=== PATIENT | female | born 1990 | race Caucasian/White ===

== ENCOUNTER 2017-10-25 11:17 | Emergency (ER) | payer OTHER, BC ==
--- NOTE | 2017-10-25 12:19 | EDM.PDOC ---
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 She is staying at employee housing in [place]. She states that around 21:20 last evening, she went to the laundry room. When she opened the door, something flew directly after, running into the left side of her neck. She states that she institute tilted her head to the left and raised her left shoulder, trapping the animal for about 15 seconds, before she left to go. When it flew away, she could see that it was a bat. The patient states that at no time did she feel any pinching, climbing, or biting sensation. Immediately afterwards, there was redness to the left side of her neck, however, no other visible signs of injury, such as scratches or puncture tony. There was no blood. The patient states that she went to the [facility] this morning, but was directed here, as they do not have the rabies vaccine. The patient is here from [place]. Her PCP is in [place]. Her vaccinations are up-to- date, however, she did not receive the rabies preexposure prophylaxis vaccine. Treatments CORN HUSK BALER: Reports: Other (see below) Other Treatments CORN HUSK BALER: none - Related Data Allergies Allergy/AdvReac Type Severity Reaction Status Date / Time acetaminophen [From Vicodin] Allergy Nausea and Verified 10/25/17 11:34 Vomiting hydrocodone [From Vicodin] Allergy Nausea and Verified 10/25/17 11:34 Vomiting Home Meds: Home Meds . [No Known Home Meds] 10/25/17 [History] Past Medical History - Past Surgical History HEENT Surgical History: Reports: Oral Surgery ([place] teeth extraction) GI Surgical History: Reports: Appendectomy, Cholecystectomy Female Surgical History: Reports: LEEP Social & Family History - Tobacco Use Smoking Status *Q: Never Smoker - Caffeine Use Caffeine Use: Reports: Coffee, Soda, Tea - Alcohol Use Alcohol Use History: Yes Alcohol Use Frequency: Socially - Recreational Drug Use Recreational Drug Use: No - Living Situation & Occupation Living situation: Reports: Single, Other (Employee housing in [place]) 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 ED EXAM, ANIMAL BITE - Physical Exam Exam: See Below Exam Limited By: No Limitations General Appearance: Alert, WD/WN, No Apparent Distress Eye Exam: Bilateral Eye: EOMI, Normal Inspection Ears: Normal External Exam, Hearing Grossly Normal Nose: Normal Inspection, No Blood Throat/Mouth: Normal Inspection, Normal Lips, Normal Voice, No Airway Compromise Head: Atraumatic, Normocephalic Neck: Normal Inspection, Supple, Non-Tender, Full Range of Motion, Other (No visible abnormality to the left side of the neck, such as swelling, erythema, ecchymosis, abrasion, or puncture wound.). No: Lymphadenopathy (L), Lymphadenopathy (R) Neurological: Alert, Oriented, Normal Cognition, No Motor/Sensory Deficits Psychiatric: Normal Affect Skin Exam: Warm/Dry, DRY, I, Normal Color, NR Course - Vital Signs Last Recorded V/S: Last Vital Signs Temp 37.1 C 10/25/17 11:32 Pulse 65 10/25/17 11:32 Resp 20 10/25/17 11:32 BP 110/74 10/25/17 11:32 Pulse Ox 100 10/25/17 11:32 - Orders/Labs/Meds Meds: Medications Discontinued Medications Generic Name Dose Route Start Last Admin Trade Name Freq PRN Reason Stop Dose Admin Rabies Immune Globulin 1,200 unit 10/25/17 12:22 Hyperrab S/D IM 10/25/17 12:23 ONETIME ONE Rabies Vaccine 2.5 unit 10/25/17 12:22 10/25/17 12:47 Rabavert IM 10/25/17 12:23 2.5 unit .ONCE ONE Administration - Re-Assessments/Exams Free Text/Narrative Re-Assessment/Exam: 10/25/17 12:[address] Esteves, Infectious Disease at [facility], at 12: 08. While the patient had contact with the bat, this encounter does not qualify as an exposure, as there was no break in the skin, no scratch, or bite. Even if the bat had drooled onto her skin, that would not count as exposure, therefore, he does not believe that the patient requires the rabies vaccination. In addition, he does not believe that the bats in this area are known to be infected with rabies. He recommends that we make sure that the patient's other vaccinations are up-to-date. 10/25/17 12:19 The above was discussed with the patient. The problem is that if the patient did have exposure to rabies, it is virtually always fatal by the time symptoms develop. Therefore, even of the patient understands that the risk of rabies is extremely low, she would prefer to proceed with the rabies vaccination. 10/25/17 12:35 I ordered both the rabies vaccination, to be placed in the patient's left deltoid, as well as HRIG, to be placed in the patient's right deltoid and/or right anterolateral thigh. Notified by Tita GONZALEZ, however, that while we have the vaccine, we do not have the HRIG. 10/25/17 12:50 The patient received her initial rabies vaccination into her left deltoid muscle. She will require repeat vaccinations on October 28, November 01, and November 08. We will refer the patient to the clinic for her injection on October 28, however, she will be in [place] on November 01 and and therefore she will need to make arrangements with her PCP there. 10/26/17 15:21 Departure - Departure Time of Disposition: 12:52 Disposition: Home, Self-Care 01 Condition: Good Clinical Impression: Rabies contact - Discharge Information Instructions: VIS, Rabies - CDC (01/31/2009) Referrals: PCP,None [Primary Care Provider] - Emperatriz Yarbrough MD [Physician] - Forms: ED Department Discharge Additional Instructions: You were seen in the emergency room after contact with a bat on Friday night, . Your case was discussed with Dr. Esteves, and infectious disease specialist at [facility]. He did not feel that your exposure qualified as an exposure ( bite or scratch), therefore, he did not feel that you required the rabies vaccination series, however, since rabies is virtually always fatal once symptoms develop, you have elected to undergo the rabies vaccination series anyway. You will require a total of 4 injections - the first was today, with your next doses due on October 28, November 01, and November 08. Call the clinic on 10/27/2017, to make an appointment to get your second vaccination injection on 10/28/2017. If any problems or confusion, have them contact Tita GONZALEZ in the ER.
[2017-10-25] MEDS ORDERED: Rabies Immune Globulin PF 150 Units/ML 10 ML SDV IM ONE (12:22)
[2017-10-25] MEDS ORDERED: Rabies Vaccine (Avian) 2.5 Unit Inj Kit IM ONE (12:22)
== END 2017-10-25 13:05 | disposition home or self-care (01) ==
LOC: JD.ED 11:17
DX: Z20.3 Contact with and (suspected) exposure to rabies (principal); Z23 Encounter for immunization; Z88.6 Allergy status to analgesic agent
CPT/HCPCS: 90675; 99283